=== PATIENT | female | born 1975 | race Caucasian/White ===

== ENCOUNTER 2019-12-25 15:52 | Emergency (ER) | payer OTHER ==
[~2019-12-25] VITALS: Ht 157.5 cm; Wt 70.3 kg
[2019-12-25 16:06] LABS: URINE BILIRUBIN NEGATIVE (Negative); URINE BLOOD NEGATIVE (Negative); URINE CLARITY CLEAR; URINE COLOR YELLOW; URINE GLUCOSE-RANDOM NEGATIVE (Negative); URINE KETONES 1+ (Negative); URINE LEUKOCYTES-REFLEX NEGATIVE (Negative); URINE NITRITE-REFLEX NEGATIVE (Negative); URINE PROTEIN TRACE (Negative); URINE SPECIFIC GRAVITY 1.025 (1.005-1.030); URINE UROBILINOGEN 0.2 E.U./dl (0.2-1.0)
[2019-12-25 16:17] LABS: ABSOLUTE BASOPHILS 0.1 thou/uL (0.0-0.2); ABSOLUTE EOSINOPHILS 0.1 thou/uL (0.0-0.7); ABSOLUTE LYMPHOCYTES 2.2 thou/uL (0.8-5.3); ABSOLUTE MONOCYTES 0.5 thou/uL (0.0-1.2); ABSOLUTE NEUTROPHILS 10.4 thou/uL (1.6-8.1); BASOPHILS 0.9 %; EOSINOPHILS 1.1 %; HEMATOCRIT 40.7 % (37.0-47.0); HEMOGLOBIN 13.8 gm/dL (12.0-15.0); LYMPHOCYTES 16.6 %; MCH 28.1 pg (26.0-34.0); MCV 82.7 fL (80.0-100.0); MONOCYTES 3.8 %; MPV 8.6 fl. (7.2-11.1); NUCLEATED RBCS 0 /100WBC; PLATELET COUNT* 274 thou/uL (150-400); POLYS 77.6 %; RBC 4.92 mil/uL (4.20-5.00); RDW-CV 13.4 % (10.5-14.5); WBC 13.4 thou/uL (4.0-11.0)
[2019-12-25 16:22] LABS: CALCIUM 8.6 mg/dL (8.5-10.1); POTASSIUM 3.5 mmol/L (3.5-5.1)
[2019-12-25 16:26] LABS: ALBUMIN 3.8 g/dL (3.4-5.0); TOTAL BILIRUBIN 1.4 mg/dL (<0.1-1.0)
[2019-12-25] MEDS ORDERED: ZOFRAN4 MG PO (17:31)
[2019-12-25] MEDS ORDERED: AZITHROMYCIN500 MG PO (17:31)
[2019-12-25 17:54] VITALS: BP 134/71
== END 2019-12-25 17:57 | disposition home or self-care (01) ==
LOC: M.ERS 15:52
PROVIDERS: Physician Assistant
DX: K52.9 Noninfective gastroenteritis and colitis, unspecified (principal)

== ENCOUNTER → 2019-12-30 | Outpatient (CLI) | payer OTHER ==
[~2019-12-30] MED LIST: AZITHROMYCIN500 MG PO; ZOFRAN4 MG PO
== END ==
LOC: M.CT 10:30
DX: R19.09 Other intra-abdominal and pelvic swelling, mass and lump (principal)